=== PATIENT | male | born 1970 | race Two or more races ===

== ENCOUNTER → 2016-08-24 | Outpatient (CLI) | payer BC ==
[~2016-08-24] MED LIST: IOHEXOL 240 MG/ML 50ML VIAL. PO ONE; IOHEXOL 300 MG/ML 75 ML VIAL IV ONE
--- NOTE | 2016-08-24 12:52 | RAD ---
Scrotal ultrasound, 08/24/2016: History: Testicular cyst The right testicle measures 4.6 x 3.4 x 2.4 cm while the left testicle measures 4.3 x 2.9 x 2.5 cm. There is symmetric blood flow within the testicles. No testicular mass is evident. A 6 mm simple cyst is present in the left epididymis. The right epididymis is unremarkable. A small amount of fluid is present in the scrotal sac bilaterally. IMPRESSION: 1. No significant testicular abnormality is detected. 2. Small left epididymal cyst.
--- NOTE | 2016-08-24 13:01 | RAD ---
PQRS Compliance Statement: One or more of the following individualized dose reduction techniques were utilized for this examination: 1. Automated exposure control 2. Adjustment of the mA and/or kV according to patient size 3. Use of iterative reconstruction technique CT of the abdomen and pelvis with contrast, 08/24/2016: History: Bilateral inguinal hernias Multidetector CT imaging was performed following oral and IV administration of contrast. The liver is unremarkable. No gallbladder abnormality is seen. The pancreas shows no abnormality. The spleen is of normal size. No renal or adrenal abnormality is detected. The abdominal aorta is unremarkable. No abdominal or pelvic adenopathy is seen. Moderate diffuse thickening of the bladder arce is probably due to its nondistended state. The bowel loops are not dilated. The appendix shows no abnormality. No free fluid is evident in the abdomen or pelvis. There is mild dilatation of the inguinal rings bilaterally. They contain spermatic cord structures and fat. No bowel herniation is evident. IMPRESSION: 1. No acute abdominal or pelvic abnormality is detected. 2. Mild dilatation of both inguinal rings without current bowel herniation.
== END | disposition home or self-care (01) ==
LOC: CT 08:11
PROVIDERS: ATTEND Nurse Practitioner Occupational Health
DX: K40.90 Unilateral inguinal hernia, without obstruction or gangrene, not specified as recurrent (principal); N44.2 Benign cyst of testis; N50.3 Cyst of epididymis
CPT/HCPCS: 74177; 76870; Q9966; Q9967